=== PATIENT | male | born 1975 | race Caucasian/White ===

== ENCOUNTER 2016-09-14 08:40 | Emergency (ER) | payer OTHER, BC ==
[2016-09-14] MEDS ORDERED: TETANUS,DIPHTHERIA TOXOID SYRINGE IM V ONE (09:39)
--- NOTE | 2016-09-14 12:01 | RAD ---
WRIST LEFT 2 VIEWS COMPARISON: None. HISTORY: Glass window broke. Injury to the left wrist. Check for foreign body near the base of the thumb. FINDINGS: Views: Left wrist PA and lateral. Bones: Normal. Joints:Normal. Soft tissue: Normal. IMPRESSION: 1. Normal study. No foreign body.
== END 2016-09-14 10:06 | disposition home or self-care (01) ==
LOC: ED 08:40
DX: S61.512A Laceration without foreign body of left wrist, initial encounter (principal); Z23 Encounter for immunization; W25.XXXA Contact with sharp glass, initial encounter; Y93.H3 Activity, building and construction; Y92.9 Unspecified place or not applicable